=== PATIENT | male | born 1950 ===

== ENCOUNTER 2017-02-09 19:44 | Emergency (ER) | payer OTHER, BC ==
[2017-02-09 19:51] VITALS: TEMP 97.8; O2SAT 97
--- NOTE | 2017-02-09 20:03 | ED PDOC ---
Upper Extremity Pain/Injury Time Seen by Provider: 02/09/17 19:59 Chief Complaint (Nursing): Upper Extremity Problem/Injury Chief Complaint (Provider): Left 3rd Finger Pain/Injury History Per: Patient History/Exam Limitations: no limitations Onset/Duration Of Symptoms: Hrs (just prior to arrival) Current Symptoms Are (Timing): Still Present Severity: Moderate Additional Complaint(s): Jose Constantino is a 66 year old male, with no pertinent past medical history, who presents to the ED on 02/09/17 for the evaluation of a moderate amount of left 3rd finger pain after a metal door had fallen onto it at work. Denies numbness/tingling. Tetanus vaccination is not up to date. PMD: Zeke Past Medical History Reviewed: Historical Data, Nursing Documentation, Vital Signs Vital Signs: Last Vital Signs Temp 97.8 F 02/09/17 19:48 Pulse 63 02/09/17 19:48 Resp 18 02/09/17 19:48 BP 163/101 H 02/09/17 19:48 Pulse Ox 97 02/09/17 19:48 - Medical History PMH: No Chronic Diseases - Surgical History Surgical History: No Surg Hx - Family History Family History: States: Unknown Family Hx - Immunization History Hx Tetanus Toxoid Vaccination: No - Home Medications Home Medications: Ambulatory Orders Medication Instructions Recorded Bacitracin Ointment [Bacitracin] 30 gm TOP BID #1 tube 02/09/17 - Allergies Allergies/Adverse Reactions: Allergies Allergy/AdvReac Type Severity Reaction Status Date / Time No Known Allergies Allergy Verified 02/09/17 19:48 Review of Systems Musculoskeletal: Positive for: Hand Pain (left 3rd finger pain/injury) Neurological: Negative for: Numbness (no tingling) Physical Exam - Reviewed Nursing Documentation Reviewed: Yes Vital Signs Reviewed: Yes - Physical Exam Appears: Positive for: Non-toxic, No Acute Distress Extremity: Positive for: Normal ROM (full, active ROM of left 3rd finger, good extension against resistance), Other (torn tissue with dark harris/necrotic appearance noted over anterior surface of left 3rd PIP; no active bleeding) Neurologic/Psych: Positive for: Alert, Oriented. Negative for: Motor/Sensory Deficits (5/5 of all joints within left 3rd finger, sensation intact) - ECG O2 Sat by Pulse Oximetry: 97 (RA) Pulse Ox Interpretation: Normal - Other Rad XR Left 3rd Finger X-Ray: Interpreted by Me, Viewed By Me X-Ray Interpretation: no fracture/dislocation Medical Decision Making Medical Decision Makin:59 Initial Impression: left 3rd finger injury; will r/o fracture and perform wound care Initial Plan: * XR Left 3rd Finger * Wound Care * TDAP 0.5ml IM * Reevaluation XR shows no evidence of fracture/dislocation, as read by JACKSON. 21:05 Approximately 1cc of lidocaine 1% used to numb affected area, which was then irrigated/cleaned using sterile water. Superficial layer of necrotic skin removed. Sterile dressing/bandage applied. Patient tolerated procedure well with no immediate complications. 21:13 Upon provider reevaluation patient is feeling better, is medically stable, and requires no further treatment in the ED at this time. Patient will be discharged home with instructions to take Tylenol as needed for relief of pain. Counseling was provided and all questions were answered regarding diagnosis and need for follow up with his PMD. There is agreement to discharge plan. Return if symptoms persist or worsen. Scribe Attestation: Documented by Savanna Laguna, acting as a scribe for Celia Acosta PA-C. Provider Scribe Attestation: All medical record entries made by the Scribe were at my direction and personally dictated by me. I have reviewed the chart and agree that the record accurately reflects my personal performance of the history, physical exam, medical decision making, and the department course for this patient. I have also personally directed, reviewed, and agree with the discharge instructions and disposition. Disposition - Clinical Impression Clinical Impression: Avulsion, skin - Patient ED Disposition Is Patient to be Admitted: No Counseled Patient/Family Regarding: Studies Performed, Diagnosis, Need For Followup - Disposition Referrals: [facility] [Outside] Disposition: Routine/Home Disposition Time: 21:13 Condition: STABLE Additional Instructions: Tylenol as needed for pain. Keep area clean and dry with antibiotic ointment. Prescriptions: Bacitracin Ointment [Bacitracin] 30 gm TOP BID #1 tube Instructions: Abrasion (ED)
[2017-02-09] MEDS ORDERED: Lidocaine 1% Inj (20ml) ONE (20:05)
[2017-02-09] MEDS ORDERED: Lidocaine 1% (10 ml) Inj INFIL STA (20:08)
[2017-02-09] MEDS ORDERED: TDAP Vaccine 0.5 mL Syr IM ONE (20:08)
[2017-02-09 21:18] VITALS: BP 134/77; PULSE 54; RESP 20
--- NOTE | 2017-02-10 09:12 | RAD ---
PROCEDURE: Left Hand Radiographs. HISTORY: crush injury COMPARISON: None. FINDINGS: BONES: Normal. No fracture. JOINTS: Normal. No osteoarthritic changes. SOFT TISSUES: Second digital soft tissue swelling. OTHER FINDINGS: None. IMPRESSION: Second digital soft tissue swelling.
== END 2017-02-09 21:29 | disposition home or self-care (01) ==
LOC: H.ER 19:44
DX: S61.213A Laceration without foreign body of left middle finger without damage to nail, initial encounter (principal); W22.8XXA Striking against or struck by other objects, initial encounter; Y99.0 Civilian activity done for income or pay